=== PATIENT | male | born 1955 | race Caucasian/White ===

== ENCOUNTER 2018-07-31 05:24 | Day surgery (SDC) | payer OTHER ==
[~2018-07-31] VITALS: Ht 172.7 cm; Wt 66.2 kg
[~2018-07-31 05:24] MED LIST: METF-416 PO; SIMV10TA6 PO; TERB250T51 PO
[2018-07-31 06:19] LABS: CLARITY URINE CLEAR (CLEAR); COLOR URINE YELLOW (YELLOW); KETONES URINE NEGATIVE (NEGATIVE); LEUKOCYTE ESTERASE URINE NEGATIVE (NEGATIVE); NITRITE URINE NEGATIVE (NEGATIVE); OCCULT BLOOD URINE NEGATIVE (NEGATIVE); PH URINE 7.5 (4.5-8.0); PROTEIN URINE 2+ (NEGATIVE); SPECIFIC GRAVITY URINE 1.012 (1.005-1.030); UROBILINOGEN URINE 0.2 E.U./dL (0.2-1.0)
[2018-07-31] MEDS ORDERED: SODIUM CHLORIDE 0.9% 1,000 ML IV SCH (06:40)
[2018-07-31] MEDS ORDERED: CEFAZOLIN SODIUM 1000MG/VIAL ONE (06:51)
[2018-07-31] MEDS ORDERED: LIDOCAINE HCL 1% 20ML VIAL (Pyxis) INJ ONE (06:51)
[2018-07-31] MEDS ORDERED: DIPHENHYDRAMINE 50MG/ML VIAL ONE (06:51)
[2018-07-31] MEDS ORDERED: MIDAZOLAM HCL 2 MG/2 ML VIAL ONE (06:51)
[2018-07-31] MEDS ORDERED: FENTANYL CITRATE/PF 50MCG/ML 2ML VIAL ONE (06:51)
[2018-07-31] MEDS ORDERED: SODIUM CHLORIDE 0.9% 10ML VIAL ONE (06:51)
[2018-07-31] MEDS ORDERED: PROPOFOL 200MG/20ML VIAL IV ONE (06:56)
[2018-07-31] MEDS ORDERED: SKIN ADHESIVE 0.7 GM EA TOP ONE (07:06)
[2018-07-31] MEDS ORDERED: BUPIVACAINE HCL/PF 0.5% (5MG/ML) 10ML ONE ×2 (07:07→07:09)
[2018-07-31] MEDS ORDERED: ROCURONIUM BROMIDE 10MG/ML VIAL 5ML IV ONE (07:47)
[2018-07-31] MEDS ORDERED: SUCCINYLCHOLINE CHLORIDE 200MG/10ML IV ONE (07:47)
[2018-07-31] MEDS ORDERED: DEXAMETHASONE 4MG/ML 1ML VIAL ONE (08:04)
[2018-07-31] MEDS ORDERED: ONDANSETRON HCL 4MG/2ML INJ ONE (08:04)
[2018-07-31] MEDS ORDERED: GLYCOPYRROLATE 0.2 MG/ML 2ML VIAL ONE (08:10)
[2018-07-31] MEDS ORDERED: EPHEDRINE SULFATE 50MG/ML VIAL ONE (08:12)
[2018-07-31] MEDS ORDERED: LABETALOL HCL 5MG/ML VIAL 20ML IV ONE (08:24)
[2018-07-31] MEDS ORDERED: HYDROMORPHONE HCL/PF 2MG/ML CPJ IV PRN (09:00)
[2018-07-31] MEDS ORDERED: HYDROCODONE/ACETAMINOPHEN 5/325MG TABLET PO PRN (10:15)
[2018-07-31 10:34] VITALS: BP 169/88
== END 2018-07-31 11:25 | disposition home or self-care (01) ==
LOC: OR 05:24
PROVIDERS: ATTEND Surgery
DX: L72.0 Epidermal cyst (principal); J44.9 Chronic obstructive pulmonary disease, unspecified; E11.9 Type 2 diabetes mellitus without complications; I10 Essential (primary) hypertension
CPT/HCPCS: 11426; 71045; 81003; 82962; 88305; G0168; J0330; J0690; J1100; J1200; J2250; J2405; J2704; J3010; J3490